=== PATIENT | male | born 1985 | race American Indian/Alaskan Native ===

== ENCOUNTER 2020-11-18 10:44 | Emergency (ER) | payer SELFPAY ==
[2020-11-18 10:50] VITALS: BP 128/79
--- NOTE | 2020-11-18 10:53 | Emergency Department Report ---
ED Upper Extremity Inj HPI - General Chief Complaint: Extremity Injury, Upper Stated Complaint: RT WRIST PAIN Time Seen by Provider: 11/18/20 10:52 Source: patient Mode of arrival: Ambulatory Limitations: No Limitations - History of Present Illness Initial Comments: This is a 35-year-old male nontoxic, well nourished in appearance, no acute signs of distress presents to the ED with c/o of right wrist/hand pain 2 weeks. Patient stated that he had a trip and fall and tried to break his fall. Patient denies any other trauma. Patient denies any numbness, tingling, fever, chills, nausea, vomiting, chest pain, shortness of breath, headache, stiff neck. Patient denies any joint swelling or joint redness. Patient denies decreased range of motion but has pain with ROM. Patient denies any allergies or significant past medical history. MD Complaint: Injury to:: right, wrist, hand -: week(s) Other Extremity Injury: Hand: Right, Wrist: Right Place: outdoors Severity scale (0 -10): 8 Improves With: immobilization Worsens With: movement of extremity Context: fall Associated Symptoms: denies other symptoms. denies: weakness, numbness, neck pain, suspects foreign body, nausea/vomiting, heard/felt popping sensat - Related Data Previous Rx's Medication Instructions Recorded Last Taken Type Naproxen 500 mg PO Q12H PRN #12 tablet 11/18/20 Unknown Rx Allergies Allergy/AdvReac Type Severity Reaction Status Date / Time No Known Allergies Allergy Unverified 11/18/20 10:46 ED Review of Systems ROS: Stated complaint: RT WRIST PAIN Other details as noted in HPI Comment: All other systems reviewed and negative Constitutional: denies: chills, fever Eyes: denies: eye pain, eye discharge, vision change ENT: denies: ear pain, throat pain Respiratory: denies: cough, shortness of breath, wheezing Cardiovascular: denies: chest pain, palpitations Endocrine: no symptoms reported Gastrointestinal: denies: abdominal pain, nausea, diarrhea Genitourinary: denies: urgency, dysuria Musculoskeletal: denies: back pain, joint swelling, arthralgia Skin: denies: rash, lesions Neurological: denies: headache, weakness, paresthesias Psychiatric: denies: anxiety, depression Hematological/Lymphatic: denies: easy bleeding, easy bruising ED Past Medical Hx - Past Medical History Previous Medical History?: No - Surgical History Past Surgical History?: No - Social History Smoking Status: Never Smoker Substance Use Type: Alcohol, Marijuana - Medications Home Medications: Home Medications Medication Instructions Recorded Confirmed Last Taken Type Naproxen 500 mg PO Q12H PRN #12 tablet 11/18/20 Unknown Rx ED Physical Exam - General Limitations: No Limitations General appearance: alert, in no apparent distress - Head Head exam: Present: atraumatic, normocephalic - Eye Eye exam: Present: normal appearance - Neck Neck exam: Present: normal inspection, full ROM - Respiratory Respiratory exam: Absent: respiratory distress - Cardiovascular Cardiovascular Exam: Present: regular rate - Extremities Exam Extremities exam: Present: normal inspection, full ROM, tenderness, normal capillary refill. Absent: joint swelling - Expanded Upper Extremity Exam Right General: Present: normal inspection Shoulder Exam: Present: normal inspection, full ROM. Absent: tenderness, swelling Upper Arm exam: Present: normal inspection, full ROM. Absent: tenderness, swelling Elbow exam: Present: normal inspection, full ROM. Absent: tenderness, swelling Forearm Wrist exam: Present: normal inspection, full ROM. Absent: tenderness, swelling, abrasion, laceration, ecchymosis, deformity, crepidus, dislocation, erythema, tenderness over anatomical snuff box, pain with axial thumb loading Hand Wrist exam: Present: full ROM, tenderness. Absent: swelling, abrasion, laceration, ecchymosis, deformity, crepidus, dislocation, erythema, amputation, nail avulsion, subungual hematoma Hand L/R Back: 1 - pain here Vascular: Present: normal capillary refill. Absent: vascular compromise (Neurovascular within normal limits) - Back Exam Back exam: Present: normal inspection, full ROM. Absent: tenderness, CVA tenderness (R), CVA tenderness (L), muscle spasm, paraspinal tenderness, vertebral tenderness, rash noted - Neurological Exam Neurological exam: Present: alert, oriented X3, normal gait - Psychiatric Psychiatric exam: Present: normal affect, normal mood - Skin Skin exam: Present: warm, dry, intact, normal color. Absent: rash ED Course Vital Signs 11/18/20 10:47 Temperature 97.9 F Pulse Rate 74 Respiratory 18 Rate Blood Pressure 128/79 O2 Sat by Pulse 99 Oximetry - Reevaluation(s) Reevaluation #1: 11/18/20 10:55 Patient is speaking in full sentences with no signs of distress noted. ED Medical Decision Making - Radiology Data Referring Physician: DICK MAXWELL Patient Name: IRINEO BUI Date of : 1985 Sex: Male Report Date: 2020-11-18 Report Status: Finalized [facility] [address] [place] [address] XRay Report Signed Patient: IRINEO BUI MR #: [id number] : 1985 Acct:[id number] Age/Sex: 35 / M ADM Date: 11/18/20 Loc: ED Attending Dr: Ordering Physician: DICK MAXWELL NP Date of Service: 11/18/20 Procedure(s): XR hand 3+V RT Accession Number(s): [id number] cc: DICK MAXWELL NP Fluoro Time In Minutes: RIGHT HAND 4 VIEWS INDICATION / CLINICAL INFORMATION: pain s/p fall. COMPARISON: None available. FINDINGS: No significant skeletal abnormality Signer Name: Dick Daley MD FACR Signed: 11/18/2020 11:40 AM Workstation Name: [id number] Transcribed By: RI Dictated By: Dick Daley MD Electronically Authenticated By: Dick Daley MD Signed Date/Time: 11/18/20 1140 DD/ 1140 TD/TT: - Medical Decision Making This is a 35-year-old male that presents with right restrained. Patient is stable and was examined by me. I referred patient to an orthopedic doctor for further evaluation for possible MRI. X-ray has been obtained and dictated by the radiologist. Patient is notified of the x-ray report with noted by the patient. Patient does have normal range of motion with no tenderness and no joint swelling. No ecchymosis. no joint redness or swelling. Not warm to touch. No signs of cellulites present. Patient was given a Eulalio wrap. Patient was instructed to RICE therapy. Patient is discharged with Motrin. At time of discharge, the patient does not seem toxic or ill in appearance. No acute signs of distress noted. Patient agrees to discharge treatment plan of care. No further questions noted by the patient. Critical care attestation.: If time is entered above; I have spent that time in minutes in the direct care of this critically ill patient, excluding procedure time. ED Disposition Clinical Impression: Strain of right wrist Disposition: DC- TO HOME OR SELFCARE Is pt being admited?: No Does the pt Need Aspirin: No Condition: Stable Instructions: RICE Therapy for Routine Care of Injuries, [id number], Wrist Sprain, Adult Additional Instructions: Follow-up with a orthopedic doctor in 3-5 days or if symptoms worsen and continue return to emergency room as soon as possible. No physical activity that extremity until cleared by orthopedic doctor Prescriptions: Naproxen 500 mg PO Q12H PRN #12 tablet PRN Reason: pain Referrals: BARTOLO FABIAN MD [Staff Physician] - 3-5 Days Forms: Work/School Release Form(ED) Time of Disposition: 12:06
--- NOTE | 2020-11-18 11:45 | XRay Report ---
RIGHT HAND 4 VIEWS INDICATION / CLINICAL INFORMATION: pain s/p fall. COMPARISON: None available. FINDINGS: No significant skeletal abnormality Signer Name: Dick Daley MD FACR Signed: 11/18/2020 11:40 AM Workstation Name: [id number]
== END 2020-11-18 12:21 | disposition home or self-care (01) ==
LOC: ED 10:44
DX: S66.911A Strain of unspecified muscle, fascia and tendon at wrist and hand level, right hand, initial encounter (principal); F12.90 Cannabis use, unspecified, uncomplicated; Z79.899 Other long term (current) drug therapy; W17.89XA Other fall from one level to another, initial encounter; Y93.89 Activity, other specified; Y92.89 Other specified places as the place of occurrence of the external cause; Y99.8 Other external cause status
CPT/HCPCS: 99283